=== PATIENT | female | born 1975 | race Caucasian/White ===

== ENCOUNTER 2017-12-08 22:33 | Emergency (ER) | payer OTHER ==
[2017-12-08 22:55] VITALS: BP 124/88; PULSE 85; RESP 20; TEMP 98.1
[2017-12-08] MEDS ORDERED: SODIUM CHLORIDE 0.9% 1,000 ML IV ONE (23:34)
--- NOTE | 2017-12-08 23:50 | ED ---
General Adult HPI - General Chief complaint: Recheck/Abnormal Lab/Rx Stated complaint: Hyperglycemia Time Seen by Provider: 12/08/17 23:14 Source: patient Mode of arrival: ambulatory Limitations: no limitations - History of Present Illness Initial comments: 42-year-old female patient presents to the emergency department today for evaluation of elevated blood sugar. Patient states that her primary care physician has been monitoring her sugar. States that today she felt "weird". States she can't describe her symptoms but she did check her blood sugar was 534. Patient states she does not take any medications for her blood sugar. She denies any dizziness, weakness, abdominal pain, nausea, vomiting, polyuria, polydipsia, or polyphagia. She denies any fevers or chills. States her sugar has never been this high before. Patient denies any recent rash, shortness breath, chest pain, diarrhea, constipation, back pain, numbness, tingling, hematuria, dysuria, urinary urgency, urinary frequency, headache, visual changes , or any other complaints. - Related Data Allergies Allergy/AdvReac Type Severity Reaction Status Date / Time No Known Allergies Allergy Verified 12/08/17 22:55 Review of Systems ROS Statement: Those systems with pertinent positive or pertinent negative responses have been documented in the HPI. ROS Other: All systems not noted in ROS Statement are negative. Past Medical History Past Medical History: No Reported History History of Any Multi-Drug Resistant Organisms: None Reported Past Surgical History: Ablation, Tonsillectomy, Tubal Ligation Past Psychological History: Anxiety Smoking Status: Never smoker Past Alcohol Use History: Occasional Past Drug Use History: None Reported General Exam Limitations: no limitations General appearance: alert, in no apparent distress, other (This is a well- developed, well-nourished adult female patient in no acute distress. Vital signs upon presentation are temperature 98.1F, pulse 85, respirations 20, blood pressure 124/88, pulse ox 96% on room air.) Eye exam: Present: normal appearance, PERRL, EOMI. Absent: scleral icterus, conjunctival injection, periorbital swelling ENT exam: Present: normal exam, normal oropharynx, mucous membranes moist Respiratory exam: Present: normal lung sounds bilaterally. Absent: respiratory distress, wheezes, rales, rhonchi, stridor Cardiovascular Exam: Present: regular rate, normal rhythm, normal heart sounds. Absent: systolic murmur, diastolic murmur, rubs, gallop, clicks GI/Abdominal exam: Present: soft, normal bowel sounds. Absent: distended, tenderness, guarding, rebound, rigid Neurological exam: Present: alert, oriented X3, CN II-XII intact Psychiatric exam: Present: normal affect, normal mood Skin exam: Present: warm, dry, intact, normal color. Absent: rash Course Vital Signs 12/08/17 22:52 Temperature 98.1 F Pulse Rate 85 Respiratory 20 Rate Blood Pressure 124/88 O2 Sat by Pulse 96 Oximetry Medical Decision Making - Medical Decision Making 42-year-old female patient presents to the emergency department today for complaints of elevated blood sugar. States that home her blood sugar was 534. States that she felt "weird" at home but was unable to describe how she was feeling. Patient is currently denying any symptoms. Blood sugar here in the department was 104. Patient states she is feeling well enough would like to be discharged home and said of receiving testing. Did discuss follow-up with her primary care physician in one to 2 days. She is instructed to monitor her diet and continue to monitor her blood pressure. Return parameters discussed in detail. She verbalizes understanding and agrees with this plan. - Lab Data Lab Results 12/09/17 12/09/17 Range/Units 00:04 00:05 POC Glucose (mg/dL) 104 H (75-99) mg/dL POC Glu [place] ID Rand Hodge Urine Color Colorless Urine Appearance Clear (Clear) Urine pH 6.0 (5.0-8.0) Ur Specific [place] 1.003 (1.001-1.035) Urine Protein Negative (Negative) Urine Glucose (UA) Negative (Negative) Urine Ketones Negative (Negative) Urine Blood Negative (Negative) Urine Nitrite Negative (Negative) Urine Bilirubin Negative (Negative) Urine Urobilinogen <2.0 (<2.0) mg/dL Ur Leukocyte Esterase Negative (Negative) Disposition Clinical Impression: Feared condition not demonstrated Disposition: HOME SELF-CARE Condition: Good Instructions: How to Check Your Blood Sugar (ED) Additional Instructions: Increase fluids. Monitor your diet and blood sugar. Follow-up with your primary care physician for recheck in 1-2 days. Is patient prescribed a controlled substance at d/c from ED?: No Referrals: Piyush Morris MD [Primary Care Provider] - 1-2 days Time of Disposition: 00:31
[2017-12-09 00:05] LABS: Glucose,Whole Blood 104 mg/dL (75-99)
[2017-12-09 00:28] LABS: Appearance,Urine Clear (Clear); Bilirubin,Urine Negative (Negative); Blood,Urine Negative (Negative); Color,Urine Colorless; Glucose,Urine (UA) Negative (Negative); Ketones,Urine Negative (Negative); Leukocyte Esterase,Urine Negative (Negative); Nitrite,Urine Negative (Negative); Protein,Urine Negative (Negative); Specific Gravity,Urine 1.003 (1.001-1.035); Urobilinogen,Urine <2.0 mg/dL (<2.0)
== END 2017-12-09 00:36 | disposition home or self-care (01) ==
LOC: EC 22:33
DX: Z71.1 Person with feared health complaint in whom no diagnosis is made (principal)
CPT/HCPCS: 36415; 81003; 99284

== ENCOUNTER → 2020-07-23 | Outpatient (CLI) | payer OTHER ==
--- NOTE | 2020-07-23 14:59 | XR ---
EXAMINATION TYPE: XR finger RT DATE OF EXAM: 07/23/2020 COMPARISON: NONE HISTORY: Pain TECHNIQUE: Three views are submitted. FINDINGS: There are multiple bony densities adjacent to the DIP joint of the fifth digit. Correlate for chip or avulsion fracture. Finding is age indeterminate. IMPRESSION: 1. Tiny bony densities adjacent to the DIP joint. This is age indeterminate correlate with point tend erness to exclude tiny chip or avulsion fracture.
== END | disposition home or self-care (01) ==
LOC: RADXRMAIN 14:06
PROVIDERS: ATTEND Emergency Medicine
DX: M85.841 Other specified disorders of bone density and structure, right hand (principal)